=== PATIENT | male | born 1970 | race African-American/Black ===

== ENCOUNTER 2021-08-31 12:42 | Observation (INO) | payer BC ==
[2021-08-31 13:09] LABS: Absolute Lymphocytes (CBC) 0.9 K/uL (0.7-4.9); Hematocrit 38.6 % (39.6-49.0); Lymphocytes % 16.1 % (15.3-44.8); MPV 8.1 fL (7.6-11.3); Protime INR 1.22; RBC Red Blood Cell Count 4.49 M/uL (4.33-5.43)
[2021-08-31] MEDS ORDERED: NA CHLORIDE 0.9% 500 ML ONE (13:11)
[2021-08-31 13:24] LABS: BUN Blood Urea Nitrogen 43 mg/dL (7-18); Bicarbonate 27 mmol/L (21-32); Glucose Level 145 mg/dL (74-106); Potassium 3.4 mmol/L (3.5-5.1); Sodium Level 139 mmol/L (136-145)
--- NOTE | 2021-08-31 14:06 | RAD REPORT ---
EXAM DESCRIPTION: RAD - Chest Single View - 08/31/2021 1:59 pm CLINICAL HISTORY: near syncope COMPARISON: No comparisons FINDINGS: Lines: None. Lungs: Hazy airspace disease bilaterally . Pleural: No significant pleural effusions or pneumothorax. Cardiac: Cardiomegaly. Bones: No acute fractures. Other: IMPRESSION: Question vascular congestion without evidence of alveolar edema or consolidative airspac e disease. Cardiomegaly .
[2021-08-31 14:32] LABS: SARS-COV-2 RT PCR NEGATIVE (NEGATIVE)
--- NOTE | 2021-08-31 16:05 | EDPHYS ---
Physician Documentation [facility] Name: Masoud Roy Age: 51 yrs Sex: Male : 1970 Arrival Date: 08/31/2021 Time: 12:47 Bed 4 Private MD: ED Physician Noman Hughes HPI: 08/31 12:49 This 51 yrs old Black Male presents to ER via EMS with complaints of Blood Pressure jmm Problem. 12:49 The patient has experienced near-syncope. Onset: The symptoms/episode began/occurred jmm acutely, just prior to arrival. Duration: This was a single episode. Associated injury: The patient did not suffer any apparent associated injury. Associated signs and symptoms: Pertinent positives: shortness of breath. This is a 51-year-old male with history of atrial fibrillation hypertension the presents emerged department with complaints of dizziness and fatigue beginning while sitting down for lunch. Patient denies vomiting or diarrhea. Denies cough or congestion. Denies fever or chills.. Historical: - Allergies: 13:00 No Known Allergies; ld1 - Home Meds: 13:00 carvedilol oral 2 tabs [Active]; losartan oral 2 tabs [Active]; Eliquis oral 2 tabs ld1 [Active]; hydralazine Oral 1 tab [Active]; flecainide oral [Active]; nifedipine Oral [Active]; - PMHx: 13:00 Atrial fibrillation; Hypertensive disorder; ld1 - PSHx: 13:00 None; ld1 - Immunization history:: Adult Immunizations up to date, Client reports receiving the 2nd dose of the Covid vaccine. - Social history:: Smoking status: Patient denies any tobacco usage or history of. Patient/guardian denies using alcohol. ROS: 12:49 Constitutional: Negative for fever, chills, and weight loss, Cardiovascular: Negative jmm for chest pain, palpitations, and edema, Respiratory: Negative for shortness of breath, cough, wheezing, and pleuritic chest pain. 12:49 Neuro: Positive for near syncope. 12:49 All other systems are negative. Exam: 12:49 Constitutional: This is a well developed, well nourished patient who is awake, alert, jmm and in no acute distress. Head/Face: atraumatic. Eyes: EOMI, no conjunctival erythema appreciated ENT: Moist Mucus Membranes Neck: Trachea midline, Supple Chest/axilla: Normal chest wall appearance and motion. Cardiovascular: Regular rate and rhythm. No edema appreciated Respiratory: Normal respirations, no respiratory distress appreciated Abdomen/GI: Non distended, soft Back: Normal ROM Skin: General appearance color normal MS/ Extremity: Moves all extremities, no obvious deformities appreciated, no edema noted to the lower extremities Neuro: Awake and alert, normal gait Psych: Behavior is normal, Mood is normal, Patient is cooperative and pleasant Vital Signs: 12:55 BP 101 / 67; Pulse 81; Resp 17; Temp 97.9(TE); Pulse Ox 99% on R/A; Weight 112.49 kg; ld1 Height 6 ft. 1 in. (185.42 cm); Pain 0/10; 14:48 BP 122 / 83; Pulse 93; Resp 18; Pulse Ox 100% on R/A; ld1 15:54 BP 135 / 94; Pulse 93; Resp 18; Pulse Ox 100% on R/A; ld1 19:34 BP 145 / 109; Pulse 93; Resp 12; Pulse Ox 94% ; st1 20:01 BP 148 / 103; Pulse 93; Resp 21; Temp 98.4; Pulse Ox 100% ; st1 12:55 Body Mass Index 32.72 (112.49 kg, 185.42 cm) ld1 MDM: 12:49 Patient medically screened. [facility] 16:03 Data reviewed: vital signs, nurses notes. Counseling: I had a detailed discussion with [facility] the patient and/or guardian regarding: the historical points, exam findings, and any diagnostic results supporting the discharge/admit diagnosis, lab results, radiology results, the need for further work-up and treatment in the hospital. ED course: I discussed the patient who accepted patient for admission with Dr. Viveros. . 08/31 12:49 Order name: Basic Metabolic Panel; Complete Time: 17:43 [facility] 08/31 12:49 Order name: CBC with Diff; Complete Time: 13:12 [facility] 08/31 12:49 Order name: LFT's; Complete Time: 17:43 [facility] 08/31 12:49 Order name: Magnesium; Complete Time: 17:43 [facility] 08/31 12:49 Order name: NT PRO-BNP; Complete Time: 17:43 [facility] 08/31 12:49 Order name: PT-INR; Complete Time: 13:12 [facility] 08/31 12:49 Order name: Troponin HS; Complete Time: 17:43 [facility] 08/31 12:49 Order name: XRAY Chest (1 view); Complete Time: 14:14 [facility] 08/31 13:09 Order name: COVID-19/FLU A+B (Document "Date of Onset" if Symptomatic); Complete Time: [facility] 14:40 08/31 17:26 Order name: Echo with Doppler [facility] 08/31 17:26 Order name: Comprehensive Metabolic Panel [facility] 08/31 17:26 Order name: Comprehensive Metabolic Panel [facility] 08/31 17:26 Order name: Lipid Profile [facility] 08/31 17:26 Order name: Lipid Profile [facility] 08/31 12:49 Order name: EKG; Complete Time: 12:50 [facility] 08/31 12:49 Order name: Cardiac monitoring; Complete Time: 12:51 [facility] 08/31 12:49 Order name: EKG - Nurse/Tech; Complete Time: 12:51 [facility] 08/31 12:49 Order name: IV Saline Lock; Complete Time: 12:51 [facility] 08/31 12:49 Order name: Labs collected and sent; Complete Time: 12:51 [facility] 08/31 12:49 Order name: O2 Per Protocol; Complete Time: 12:51 [facility] 08/31 12:49 Order name: O2 Sat Monitoring; Complete Time: 12:51 [facility] 08/31 17:26 Order name: Renal [facility] 08/31 17:27 Order name: Echo with Doppler [facility] 08/31 17:27 Order name: EKG Electrocardiogram [facility] 08/31 17:27 Order name: EKG Electrocardiogram [facility] 08/31 17:27 Order name: Carotid Artery Bilateral [facility] Administered Medications: 13:19 Drug: NS 0.9% 500 ml Route: IV; Rate: bolus; Site: right antecubital; ld1 Disposition Summary: 08/31/21 16:04 Hospitalization Ordered Hospitalization Status: Observation [facility] Provider: Noman Viveros Location: Telemetry/MedSurg (observation) [facility] Condition: Stable [facility] Problem: new [facility] Symptoms: have improved [facility] Bed/Room Type: Standard [facility] Room Assignment: 212(08/31/21 19:38) mw Diagnosis - Near Syncope [facility] Forms: - Medication Reconciliation Form jacob - SBAR form jacob Signatures: Dispatcher [employer] Holly Murphy RN RN Lev Jimenez PA PA jmm Dibbern, Lauren, RN RN ld1 Corrections: (The following items were deleted from the chart) 19:38 16:04 jacob lindsey
--- NOTE | 2021-08-31 16:05 | ER ---
Nurse's Notes [facility] Name: Masoud Roy Age: 51 yrs Sex: Male : 1970 Arrival Date: 08/31/2021 Time: 12:47 Bed 4 Private MD: Diagnosis: Near Syncope Presentation: 08/31 12:55 Chief complaint: EMS states: toned out for low blood pressure. Pt was at work and began ld1 feeling dizzy, thought he was going to pass out. Upon arrival EMS reported pt was diaphoretic and BP 101/67. Coronavirus screen: At this time, the client does not indicate any symptoms associated with coronavirus-19. Ebola Screen: No symptoms or risks identified at this time. Initial Sepsis Screen: Does the patient meet any 2 criteria? No. Patient's initial sepsis screen is negative. Does the patient have a suspected source of infection? No. Patient's initial sepsis screen is negative. Risk Assessment: Do you want to hurt yourself or someone else? Patient reports no desire to harm self or others. Onset of symptoms was August 31, 2021. 12:55 Method Of Arrival: EMS: [facility] ld1 12:55 Acuity: ERICA 3 ld1 Triage Assessment: 13:00 General: Appears in no apparent distress. comfortable, Behavior is calm, cooperative, ld1 appropriate for age. Pain: Denies pain. EENT: No signs and/or symptoms were reported regarding the EENT system. Neuro: Level of Consciousness is awake, alert, obeys commands, Oriented to person, place, time, situation, Reports dizziness, Near syncopal episode.. Cardiovascular: Capillary refill < 3 seconds Patient's skin is warm and dry. Rhythm is regular. Cardiovascular: Reports diaphoresis, lightheadedness, Respiratory: Airway is patent Respiratory effort is even, unlabored, Respiratory pattern is regular, symmetrical. GI: Abdomen is flat, non-distended. : No signs and/or symptoms were reported regarding the genitourinary system. Derm: Skin is diaphoretic. Musculoskeletal: No signs and/or symptoms reported regarding the musculoskeletal system. Historical: - Allergies: 13:00 No Known Allergies; ld1 - Home Meds: 13:00 carvedilol oral 2 tabs [Active]; losartan oral 2 tabs [Active]; Eliquis oral 2 tabs ld1 [Active]; hydralazine Oral 1 tab [Active]; flecainide oral [Active]; nifedipine Oral [Active]; - PMHx: 13:00 Atrial fibrillation; Hypertensive disorder; ld1 - PSHx: 13:00 None; ld1 - Immunization history:: Adult Immunizations up to date, Client reports receiving the 2nd dose of the Covid vaccine. - Social history:: Smoking status: Patient denies any tobacco usage or history of. Patient/guardian denies using alcohol. Screenin:04 Abuse screen: Denies threats or abuse. Denies injuries from another. Nutritional ld1 screening: No deficits noted. Tuberculosis screening: No symptoms or risk factors identified. Fall Risk None identified. Assessment: 13:04 Reassessment: See triage assessment. ld1 14:48 Reassessment: Patient appears in no apparent distress at this time. No changes from ld1 previously documented assessment. Patient and/or family updated on plan of care and expected duration. Pain level reassessed. Patient is alert, oriented x 3, equal unlabored respirations, skin warm/dry/pink. 15:54 Reassessment: Patient appears in no apparent distress at this time. No changes from ld1 previously documented assessment. Patient and/or family updated on plan of care and expected duration. Pain level reassessed. Patient is alert, oriented x 3, equal unlabored respirations, skin warm/dry/pink. 17:00 Reassessment: Patient appears in no apparent distress at this time. No changes from ww previously documented assessment. Patient and/or family updated on plan of care and expected duration. Pain level reassessed. Patient is alert, oriented x 3, equal unlabored respirations, skin warm/dry/pink. 18:45 Reassessment: Patient appears in no apparent distress at this time. No changes from ww previously documented assessment. Patient and/or family updated on plan of care and expected duration. Pain level reassessed. Patient is alert, oriented x 3, equal unlabored respirations, skin warm/dry/pink. Vital Signs: 12:55 BP 101 / 67; Pulse 81; Resp 17; Temp 97.9(TE); Pulse Ox 99% on R/A; Weight 112.49 kg; ld1 Height 6 ft. 1 in. (185.42 cm); Pain 0/10; 14:48 BP 122 / 83; Pulse 93; Resp 18; Pulse Ox 100% on R/A; ld1 15:54 BP 135 / 94; Pulse 93; Resp 18; Pulse Ox 100% on R/A; ld1 19:34 BP 145 / 109; Pulse 93; Resp 12; Pulse Ox 94% ; st1 20:01 BP 148 / 103; Pulse 93; Resp 21; Temp 98.4; Pulse Ox 100% ; st1 12:55 Body Mass Index 32.72 (112.49 kg, 185.42 cm) ld1 ED Course: 12:47 Patient arrived in ED. iw 12:47 Lev Painter PA is PHCP. jmm 12:48 Noman Hughes MD is Attending Physician. jmm 12:51 Kait Sierra RN is Primary Nurse. ww 13:00 Triage completed. ld1 13:00 Arm band placed on right wrist. ld1 13:04 Patient has correct armband on for positive identification. Placed in gown. Bed in low ld1 position. Call light in reach. Side rails up X2. ophthalmic medical technologist on. Pulse ox on. NIBP on. Door closed. Noise minimized. Warm blanket given. 13:04 No provider procedures requiring assistance completed. Inserted saline lock: 20 gauge ld1 in right antecubital area, using aseptic technique. Blood collected. Maintain EMS IV. Dressing intact. Good blood return noted. Site clean \\T\\ dry. Gauge \\T\\ site: 20G LAC. 13:19 COVID-19/FLU A+B (Document "Date of Onset" if Symptomatic) Sent. ld1 13:58 XRAY Chest (1 view) In Process Unspecified. EDMS 16:04 Noman Viveros MD is Hospitalizing Provider. jmm 20:07 Patient admitted, IV remains in place. st1 Administered Medications: 13:19 Drug: NS 0.9% 500 ml Route: IV; Rate: bolus; Site: right antecubital; ld1 Outcome: 16:04 Decision to Hospitalize by Provider. jmm 20:05 Admitted to Med/surg accompanied by nurse, via wheelchair, room 212, with chart, Report st1 called to JOVANY Sibley 20:05 Condition: stable 20:30 Patient left the ED. tw5 Signatures: Dispatcher [employer] EDMS Lev Painter PA PA jmm Eduin, Evelyn, RN RN iw Jyothi Landis, RN RN ld1 Beba Sierra tw5 Kait Sierra, RN RN ww Harika Palumbo RN RN st1
[2021-08-31] MEDS ORDERED: ONDANSETRON 4 MG/2 ML VIAL IV PRN (17:23)
[2021-08-31] MEDS ORDERED: ACETAMINOPHEN 500 MG TAB PO PRN (17:23)
[2021-08-31 17:29] LABS: ALT/SGPT 19 U/L (12-78); AST/SGOT 17 U/L (15-37); Albumin 3.1 g/dL (3.4-5.0); Alkaline Phosphatase 74 U/L (45-117); Bilirubin Direct < 0.1 mg/dL (0-0.2); Bilirubin Total 0.4 mg/dL (0.2-1.0); Magnesium 1.9 mg/dL (1.8-2.4); NT PRO-BNP 1217 pg/mL (<125); Protein, Total 7.4 g/dL (6.4-8.2)
[2021-08-31] MEDS: NA CHLORIDE 0.9% 1,000 ML IV SCH (20:48)
[2021-08-31 23:24] VITALS: BMI 32.7
[2021-09-01] MEDS: NA CHLORIDE 0.9% 1,000 ML IV SCH ×2 (04:00→14:00)
[2021-09-01 04:48] VITALS: O2SAT 99
[2021-09-01 05:48] LABS: Absolute Lymphocytes (CBC) 0.9 K/uL (0.7-4.9); Hematocrit 34.1 % (39.6-49.0); RBC Red Blood Cell Count 3.96 M/uL (4.33-5.43)
[2021-09-01 07:32] LABS: Albumin 2.7 g/dL (3.4-5.0); Bilirubin Total 0.4 mg/dL (0.2-1.0); Potassium 3.2 mmol/L (3.5-5.1); Protein, Total 6.5 g/dL (6.4-8.2)
--- NOTE | 2021-09-01 07:33 | RAD REPORT ---
EXAM DESCRIPTION: - CP - 09/01/2021 6:32 am CLINICAL HISTORY: near syncope COMPARISON: No comparisons TECHNIQUE: Real-time sonographic evaluation of both carotid systems was performed. Doppler interroga tion was performed with waveform tracing bilaterally. FINDINGS: Normal high resistance waveforms are noted in both external carotid arteries. The common c arotid arteries and internal carotid arteries show normal low resistance waveforms. Mild soft plaque at both carotid bulbs. Peak systolic and end diastolic velocity values and the ICA/C CA ratios are in the non-hemodynamically significant range. Antegrade flow seen in both vertebral arteries. IMPRESSION: Mild soft plaque at both carotid bulbs. No evidence of a hemodynamically significant stenosis.
[2021-09-01] MEDS ORDERED: LOSARTAN POTASSIUM 50 MG TABLET PO ONE (18:00)
[2021-09-01] MEDS ORDERED: cloNIDine HCL 0.1 MG TAB PO ONE (18:00)
[2021-09-01] MEDS ORDERED: PARICALCITOL 2 MCG PO SCH (21:00)
[2021-09-01] MEDS: FLECAINIDE 100 MG TAB PO SCH (21:00)
[2021-09-01] MEDS: carvediloL 25 MG TAB PO SCH (21:02)
[2021-09-01] MEDS: APIXABAN 5 MG TABLET PO SCH (21:02)
[2021-09-02] MEDS: NA CHLORIDE 0.9% 1,000 ML IV SCH
[2021-09-02] MEDS: carvediloL 25 MG TAB PO SCH (08:40)
[2021-09-02] MEDS: FLECAINIDE 100 MG TAB PO SCH (08:40)
[2021-09-02] MEDS: APIXABAN 5 MG TABLET PO SCH (08:40)
[2021-09-02 08:41] VITALS: BP 153/80
[2021-09-02] MEDS ORDERED: LOSARTAN POTASSIUM 50 MG TABLET PO SCH (09:00)
[2021-09-02 09:15] VITALS: TEMP 97.6
--- NOTE | 2021-09-04 01:49 | P.HP ---
Certification for Inpatient Patient admitted to: Observation With expected LOS: <2 Midnights Patient will require the following post-hospital care: None Practitioner: I am a practitioner with admitting privileges, knowledge of patient current condition, hospital course, and medical plan of care. Services: Services provided to patient in accordance with Admission requirements found in Title 42 Section 412.3 of the Code of Federal Regulations Patient History Date of Service: 08/31/21 History of Present Illness: Patient is a 51-year-old gentleman who came to the hospital with hypotension. Patient states he was lightheaded. Patient was given anti hypertensives by his physician and afterwards he has been feeling lightheaded. Patient has tried to stop taking up 1 of his blood pressure medications the still having near syncopal episodes. He came to the hospital for further evaluation. Allergies No Known Allergies Allergy (Verified 08/31/21 20:54) Home Medications: Apixaban [Eliquis] 5 mg PO BID 09/01/21 Carvedilol [Coreg] 25 mg PO BID 09/01/21 Flecainide Acetate 150 mg PO BID 09/01/21 Losartan Potassium 50 mg PO BID 09/01/21 Paricalcitol [Zemplar] 2 mcg PO BID 09/01/21 - Past Medical/Surgical History Has patient received pneumonia vaccine in the past: No Diabetic: No -: Atrial fibrillation -: Hypertension Past Surgical History: Patient denies surgical history - Family History Father Medical History: GI disease Family History: Reviewed- Non-Contributory - Social History Smoking Status: Never smoker Alcohol use: No CD- Drugs: No Caffeine use: No Place of Residence: Home Review of Systems 10-point ROS is otherwise unremarkable Physical Examination - Vital Signs Temperature: 97.6 F Blood Pressure: 153/80 Pulse: 73 Respirations: 18 Pulse Ox (%): 97 - Physical Exam General: Alert, In no apparent distress HEENT: Atraumatic, PERRLA, Mucous membr. moist/pink, EOMI, Sclerae nonicteric Neck: Supple, 2+ carotid pulse no bruit, No LAD, Without JVD or thyroid abnormality Respiratory: Clear to auscultation bilaterally, Normal air movement Cardiovascular: Regular rate/rhythm, Normal S1 S2 Gastrointestinal: Normal bowel sounds, No tenderness Musculoskeletal: No tenderness Integumentary: No rashes Neurological: Normal gait, Normal speech, Normal strength at 5/5 x4 extr, Normal tone, Normal affect Lymphatics: No axilla or inguinal lymphadenopathy Assessment & Plan - Problems (Diagnosis) (1) Hypotension Status: Acute (2) Syncope Status: Acute (3) History of high blood pressure Status: Acute - Plan Plan: 1. Continue with gentle hydration 2. Adjust anti hypertensives 3. Carotid Doppler and echocardiogram 4. GI and DVT prophylaxis Discharge Plan: Home Plan to discharge in: Greater than 2 days - Advance Directives Does patient have a Living Will: No Does patient have a Durable POA for Healthcare: No - Code Status/Comfort Care Code Status Assessed: Yes Code Status: Full Code Critical Care: No Time Spent Managing PTS Care (In Minutes): 35
--- NOTE | 2021-09-04 01:51 | P.PN ---
Subjective Date of Service: 09/01/21 Patient continues to do well. Patient's symptoms are getting better. Review of Systems 10-point ROS is otherwise unremarkable Physical Examination - Vital Signs Temperature: 97.6 F Blood Pressure: 153/80 Pulse: 73 Respirations: 18 Pulse Ox (%): 97 - Physical Exam General: Alert, In no apparent distress, Oriented x3 Respiratory: Clear to auscultation bilaterally, Normal air movement Cardiovascular: Normal pulses, Regular rate/rhythm, Normal S1 S2 Gastrointestinal: Normal bowel sounds, Soft and benign, Non-distended Musculoskeletal: No clubbing, No swelling Neurological: Normal gait, Normal speech, Normal strength at 5/5 x4 extr Assessment & Plan - Problems (Diagnosis) (1) Hypotension Status: Acute (2) Syncope Status: Acute (3) History of high blood pressure Status: Acute - Plan Plan: continue with plan of care as mentioned below: 1. Continue with gentle hydration; blood pressure is stable 2. Adjust anti hypertensives 3. Carotid Doppler and echocardiogram pending 4. GI and DVT prophylaxis - Advance Directives Does patient have a Living Will: No Does patient have a Durable POA for Healthcare: No - Code Status/Comfort Care Code Status: Full Code
--- NOTE | 2021-09-04 01:52 | P.DS ---
Discharge Date: 09/02/21 Disposition: ROUTINE DISCHARGE Discharge Condition: GOOD - Problems (1) Hypotension Status: Acute (2) Syncope Status: Acute (3) History of high blood pressure Status: Acute Brief History of Present Illness: Patient is a 51-year-old gentleman who came to the hospital with hypotension. Patient states he was lightheaded. Patient was given anti hypertensives by his physician and afterwards he has been feeling lightheaded. Patient has tried to stop taking up 1 of his blood pressure medications the still having near syn copal episodes. He came to the hospital for further evaluation. Hospital Course: Patient is clinically feeling much better. Patient's symptoms are much better. At this time, patient is stable for discharge. We have adjusted patient blood pressure medications and we have spoke with them regarding this. Echocardiogram and carotid Doppler were negative. Vital Signs/Physical Exam: Temp Pulse Resp BP Pulse Ox 97.6 F 73 18 153/80 H 97 09/04/21 01:50 09/04/21 01:50 09/04/21 01:50 09/04/21 01:50 09/04/21 01:50 General: Alert, In no apparent distress, Oriented x3 Laboratory Data at Discharge: WBC 6.50 K/uL (4.3-10.9) D 09/01/21 05:05 Hgb 10.9 g/dL (13.6-17.9) L 09/01/21 05:05 Hct 34.1 % (39.6-49.0) L 09/01/21 05:05 Plt Count 256 K/uL (152-406) D 09/01/21 05:05 PT 14.1 SECONDS (9.5-12.5) H 08/31/21 12:52 INR 1.22 08/31/21 12:52 Sodium 142 mmol/L (136-145) 09/01/21 05:05 Potassium 3.2 mmol/L (3.5-5.1) L 09/01/21 05:05 BUN 42 mg/dL (7-18) H 09/01/21 05:05 Creatinine 2.84 mg/dL (0.55-1.3) H 09/01/21 05:05 Glucose 91 mg/dL (74-106) 09/01/21 05:05 Magnesium 1.9 mg/dL (1.8-2.4) 08/31/21 12:52 Total Bilirubin 0.4 mg/dL (0.2-1.0) 09/01/21 05:05 AST 16 U/L (15-37) 09/01/21 05:05 ALT 15 U/L (12-78) 09/01/21 05:05 Alkaline Phosphatase 65 U/L (45-117) 09/01/21 05:05 Triglycerides 87 mg/dL (<150) 09/01/21 05:05 Cholesterol 251 mg/dL (<200) H 09/01/21 05:05 HDL Cholesterol 85 mg/dL (40-60) H 09/01/21 05:05 Cholesterol/HDL Ratio 2.95 09/01/21 05:05 Home Medications: Apixaban [Eliquis] 5 mg PO BID 09/01/21 Carvedilol [Coreg] 25 mg PO BID 09/01/21 Flecainide Acetate 150 mg PO BID 09/01/21 Losartan Potassium 50 mg PO BID 09/01/21 Paricalcitol [Zemplar] 2 mcg PO BID 09/01/21 Physician Discharge Instructions: -DC IV and DC home -Follow-up with PCP in 1 to 2 weeks -Follow-up with Cardiology in 1 to 2 weeks -Please call Dr. Viveros at [phone] if any questions regarding hospital stay -Please call nursing station at [phone] if any nursing or medication questions -Return to the emergency room if symptoms worsen Diet: AHA Activity: Fall precautions Time spent managing pt's care (in minutes): 35
--- NOTE | 2021-09-04 07:22 | ECHO ---
HEIGHT: 6 ft 1 in WEIGHT: 247 lb 15.968 oz DATE OF STUDY: 09/01/[address]: Noman Viveros MD 2-DIMENSIONAL: YES M.MODE: YES DOPPLER: YES COLOR FLOW: YES TDS: NO PORTABLE: NO DEFINITY: NO BUBBLE STUDY: NO DIAGNOSIS: NEAR SYNCOPE CARDIAC HISTORY: CATHERIZATION:YES SURGERY: NO PROSTHETIC VALVE: NO PACEMAKER: NO MEASUREMENTS (cm) DIASTOLIC (NORMALS) SYSTOLIC (NORMALS) IVSd 1.3 (0.6-1.2) LA Diam 4.8 (1.9-4.0) LVEF 50-55% LVIDd 5.7 (3.5-5.7) LVIDs 4.0 (2.0-3.5) %FS 30% LVPWd 1.4 (0.6-1.2) Ao Diam 3.2 (2.0-3.7) 2 DIMENSIONAL ASSESSMENT: RIGHT ATRIUM: NORMAL LEFT ATRIUM: ENLARGED RIGHT VENTRICLE: NORMAL LEFT VENTRICLE: LEFT VENTRICULAR HYPERTROPHY TRICUSPID VALVE: MITRAL VALVE: PULMONIC VALVE: NORMAL AORTIC VALVE: PERICARDIAL EFFUSION: NONE AORTIC ROOT: NORMAL LEFT VENTRICULAR WALL MOTION: NORMAL DOPPLER/COLOR FLOW: SEE BELOW COMMENTS: LOW NORMAL LEFT VENTRICULAR EJECTION FRACTION 50-55%. MODERATE CONCENTRIC LEFT VENTRICULAR HYPERTROPHY. MILD TRICUSPID, AORTIC AND MITRAL REGURGITATION. TECHNOLOGIST: Brennen VILLAGOMEZ
== END 2021-09-02 11:51 | disposition home or self-care (01) ==
LOC: ER 12:42 → ERHOLD 17:23 → 2ND 20:10
PROVIDERS: ADMIT Hospitalist; ATTEND Hospitalist
DX: I95.9 Hypotension, unspecified (principal); I48.91 Unspecified atrial fibrillation; I10 Essential (primary) hypertension; Z79.01 Long term (current) use of anticoagulants; Z20.822 Contact with and (suspected) exposure to COVID-19; Z83.79 Family history of other diseases of the digestive system
CPT/HCPCS: 93005 ×2; 93306; 85025 ×2; 80048; 36415; 83735; 85610; 80061; 80076; 84484; 80053; 83880; 0240U; 71045; 93880; 99285; J7040; J7030; G0378